=== PATIENT | female | born 1955 | race Caucasian/White ===

== ENCOUNTER → 2017-03-07 15:35 | Outpatient (CLI) | payer OTHER | END | disposition home or self-care (01) | LOC: D.MAMMO 09:00 | DX: Z12.31 Encounter for screening mammogram for malignant neoplasm of breast (principal) ==

== ENCOUNTER 2018-12-31 10:00 | Outpatient (CLI) | payer OTHER | END 2018-12-31 10:30 | disposition home or self-care (01) | LOC: D.MAMMO 10:00 | PROVIDERS: ATTEND Family Medicine | DX: Z12.31 Encounter for screening mammogram for malignant neoplasm of breast (principal) ==

== ENCOUNTER → 2019-07-14 11:19 | Outpatient (CLI) | payer OTHER ==
--- NOTE | 2019-07-17 12:54 | ST ---
PATIENT:CANDIS WASSERMAN MEDICAL RECORD: [id number] SEX: F LOCATION:[facility] ORDER #: ADMISSION DATE: 07/14/19 AGE OF PATIENT: 63 REFERRING PHYSICIAN: INTERPRETING PHYSICIAN: MUMTAZ COLMENARES MD DATE OF SERVICE: 07/14/2019 PROCEDURE: Nuclear stress test. INDICATION: Angina, hypertension, hyperlipidemia, family history of coronary artery disease. She was exercised on standard Jc protocol for 5 minutes achieving 85% maximum target heart rate response with 33 mCi of sestamibi injected at peak stress. Rest images were done previously with 11 mCi. FINDINGS: Gated SPECT reveals preserved ejection fraction at 74% with good wall motion and thickening and brightening throughout all segments. SPECT imaging Cardiolite was used as myocardial fusion agent. There is homogeneous uptake throughout all segments at rest and stress with no evidence of inducible ischemia or previous infarction. OVERALL IMPRESSION: 1. This is a normal nuclear stress test with no evidence of inducible ischemia or previous infarction. 2. Gated SPECT reveals a preserved ejection fraction at 74%. In this patient with ongoing symptomatology, the current scan does not suggest the presence of hemodynamically significant coronary artery disease. Evaluate noncardiac etiology of chest pain. TRANSINT:[id number] Voice Confirmation ID: [id number] DOCUMENT ID: [id number] MUMTAZ COLMENARES MD at 1254 CC: [id number] DICTATION DATE: 07/15/19 1234 TUR[address] ROOM ATTENDANT: 07/16/19 0427 DEP CLI 07/14/19 [place] [id number]
== END | disposition home or self-care (01) ==
LOC: D.HCCARDIO 11:19
PROVIDERS: ATTEND Internal Medicine Interventional Cardiology
DX: I20.9 Angina pectoris, unspecified (principal)